=== PATIENT | female | born 1990 | race Caucasian/White ===

== ENCOUNTER 2016-10-19 21:49 | Emergency (ER) | payer MEDICAID | END 2016-10-19 23:12 | disposition home or self-care (01) | LOC: ER 21:49 | DX: K08.89 Other specified disorders of teeth and supporting structures (principal) ==

== ENCOUNTER 2016-10-20 11:44 | Emergency (ER) | payer MEDICAID | END 2016-10-20 12:36 | disposition home or self-care (01) | LOC: ER 11:44 ==